=== PATIENT | male | born 1975 | race Caucasian/White ===

== ENCOUNTER 2017-07-11 16:03 | Emergency (ER) | payer SELFPAY ==
--- NOTE | 2017-07-11 16:13 | ED Physician Documentation ---
Low Back Pain - HISTORIAN Historian: patient - HPI Chief Complaint: Low Back Pain/ Injury History: denies: back pain Onset: days ago (2 weeks ago) Duration: continues in ED Context: lifting, other (has been moving feezers that have been full, moving other heavy items) Where: home Associated Symptoms: denies: fever, chills Further Comments: no - ROS CONST: no problems - PAST HX Past History: other (Hypertension) Other History: denies: diabetes Type 2 Allergies/Adverse Reactions: Allergies Allergy/AdvReac Type Severity Reaction Status Date / Time No Known Allergies Allergy Unverified 07/11/17 16:16 Home Medications: Ambulatory Orders Medication Instructions Recorded Aspirin [Neil] 325 mg PO QDAY 07/11/17 Cyclobenzaprine HCl [Flexeril] 5 - 10 mg PO TID #30 tablet 07/11/17 - SOCIAL HX Smoking History: greater than 1 pack/day Alcohol Use: none Drug Use: none - FAMILY HX Family History: other (CAD ,DM Cancer, HTN) - REVIEWED ASSESSMENTS Nursing Assessment Reviewed: Yes Vitals Reviewed: Yes Low Back Pain/Injury - Physical Exam General Appearance: alert, mild distress Neck: non-tender, painless ROM Resp/CVS: chest non-tender, breath sounds nml, heart sounds nml, no resp. distress, lungs clear, reg. rate & rhythm Back: CVA tenderness, muscle spasm (R>L to the lower lumbar area). No: vertebral point-tendernes Straight Leg Raising: Negative Left, Positive Right (at 90 degrees) Neuro/Psych: oriented x3, motor nml, sensation nml, reflexes nml, mood/affect nml Discharge Clincal Impression: Low back strain Referrals: Sebas Blake DO [Primary Care Provider] - 2 Days Additional Instructions: Continue using a warm/cool compress to the lower back area. Take some Ibuprofen 200mg, up to 12 tablets in 24 hours, take with food. Avoid a lot of bending and twisting of the lower back area. Do not lift any more then 5 lbs at this time. Take Flexoril as needed for muscle spasms, this may cause some drowsiness. Condition: Stable Disposition: 01 HOME, SELF-CARE Decision to Admit: NO Date of Decison to Admit: 07/11/17 Decision Time: 16:28
[2017-07-11 16:16] VITALS: BP 148/90
[2017-07-11] MEDS ORDERED: KETOROLAC TROMETHAMINE 60 MG/2 ML VIAL IM ONE (16:43)
== END 2017-07-11 16:54 | disposition home or self-care (01) ==
LOC: ED 16:03
DX: S39.012A Strain of muscle, fascia and tendon of lower back, initial encounter (principal); X58.XXXA Exposure to other specified factors, initial encounter; Y93.9 Activity, unspecified; Y99.9 Unspecified external cause status
CPT/HCPCS: 96372; 99283; J1885